=== PATIENT | female | born 1940 | race Caucasian/White ===

== ENCOUNTER → 2023-01-08 13:42 | Outpatient (BNVA) | payer MEDICARE, OTHER, SELFPAY | PROVIDERS: Visit Provider Psychiatry & Neurology Neurology | DX: G31.83 Neurocognitive disorder with Lewy bodies (principal); F02.80 Dementia in other diseases classified elsewhere, unspecified severity, without behavioral disturbance, psychotic disturbance, mood disturbance, and anxiety; R44.3 Hallucinations, unspecified; R41.4 Neurologic neglect syndrome; Z79.899 Other long term (current) drug therapy | CPT/HCPCS: 99202 ==